=== PATIENT | female | born 1990 | race Caucasian/White ===

== ENCOUNTER 2020-10-20 13:52 | Emergency (ER) | payer SELFPAY ==
--- OUTSIDE RECORDS SUMMARY | 2020-10-20 13:56 | XMS REPORT | Continuity of Care Document ---
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 Interpretation Comments UA Spec Grav (test code = UA Spec 1.025 1 Grav) [facility] [id number] 02:23:00Negative (10/11/13 9:23 PM) [facility] [id number] 02:23:00 Test Item Value Reference Range Interpretation Comments UA pH (test code = UA pH) 7.0 1 5.0-8.0 [facility] [id number] 02:23:00None Seen (10/11/13 9:23 PM) [facility] [id number] 02:23:00None Seen (10/11/13 9:23 PM) [facility] [id number] 02:23:00None Seen (10/11/13 9:23 PM) [facility] [id number] 02:23:00Negative (10/11/13 9:23 PM) [facility] [id number] 02:23:00Negative (10/11/13 9:23 PM) [facility] [id number] 02:23:00Negative (10/11/13 9:23 PM) [facility] [id number] 02:23:000.2[facility] [id number] 02:23:00Negative *NA*(10/11/13 9:23 PM)[facility] [id number] 02:23:00Negative (10/11/13 9:23 PM)[facility] [id number] 02:23:00Negative *NA*(10/11/13 9:23 PM)[facility] CHEM 2013-10-12 02:23:00Negative (10/11/13 9:23 PM)[facility]ann[facility]MUNOLOGY 2013-10-12 01:11:00Negative (10/11/13 8:11 PM)[facility] RESULTS 2013-10-12 00:35:00Negative (10/11/13 7:35 PM)[facility] PANEL 2013-10-12 00:33:000.8[facility] [id number] 00:33:0089[facility] [id number] 00:33:009.4[facility] [id number] 00:33:0026[facility] IUHXT7067-17-29 00:33:57212Thvoajhb HermannCHEM [id number] 00:33:000.9[facility] [id number] 00:33:90246 [facility] [id number] 00:33:003.7[facility]annCHE[facility] PANEL 2013-10-12 00:33:0017[facility] [id number] 00:33:31316Kyhaoxlr HermannCHEM PKGSC8141-93-27 00:33:008.7[facility] CxshrfbSIOANMWCVP1524-83-92 00:33:0033.3[facility] ZvfecxwFNWTFXKJPO7072-99-76 00:33:0011.8[facility] [place] RIIRHENNGO0295-65-84 00:33:009.1[facility] MdibxuaCIXLAHXEBL1273-74-80 00:33:26401 [facility] OpnipjfJMPYLZNZYG2989-07-31 00:33:0015.4[facility]annHEMATOLOGY 2013-10-12 00:33:0090.0[facility] IldaevbFBYYDBZUAK2380-71-54 00:33:00 Test Item Value Reference Range Interpretation Comments MCH (test code = MCH) 30.0 pg 27.0-31.0 [facility] RuiwakeAPXTESSEHG4005-21-81 00:33:0040.7[facility]annHEMATOLOGY 2013-10-12 00:33:0013.6[facility] DjjlvvcDTIMDOCJLB7618-35-98 00:33:004.52[facility] BbajgdnDJHLCTAKZO0232-18-62 00:33:001.3[facility] PiqlyxrMXIMPEOKBY1731-45-78 00:33:00 Test Item Value Reference Range Interpretation Comments Angle (test code = Angle) 73 degrees 64-80 [facility] PndibkuZVSLUXUKIQ5319-19-72 00:33:00 Test Item Value Reference Range Interpretation Comments K-time (test code = K-time) 1.3 min 0.6-2.3 [facility] ZolpggvLWXGBIYHLZ7921-07-35 00:33:007.1[facility]ann[facility]MATOLOGY 2013-10-12 00:33:00 Test Item Value Reference Range Interpretation Comments Max Amp (test code = Max Amp) 59 mm 52-71 [facility] KffonrpXTOSTFTYSS0479-94-07 00:33:00 Test Item Value Reference Range Interpretation Comments ACT (TEG) (test code = ACT (TEG)) 136 s 86-118 [facility] VvofggjUDHYMJBVXP9019-53-51 00:33:00 Test Item Value Reference Range Interpretation Comments Split Point (test code = Split Point) 0.8 min [facility] AipvbxpVKTVZAZILO6653-09-27 00:33:00 Test Item Value Reference Range Interpretation Comments R-time (test code = R-time) 0.9 min 0.4-0.7 [facility] EczqetaYORJWLCPJN6066-70-94 00:33:001.5[facility]MATOLOGY 2013-10-12 00:33:000.6[facility] GgoxcyhYWNMIVJZDO9770-86-83 00:33:003.0[facility] ZxgeotwDVELALAXWN1411-17-17 00:33:0012.8[facility] SxafagfCSLDDDJECV2894-45-01 00:33:004.0[facility] DosuttaSRUQLSGEYA4923-98-93 00:33:000.3[facility] WYSGLQASOS7837-39-11 00:33:0082.8[facility] GovwcesUGKSZIWBRY7902-60-80 00:33:00 0.0[facility] UzildgiLRZRDCOMBW3282-44-70 00:33:009.9[facility]annHEMATOLOGY 2013-10-12 00:33:00Normal (10/11/13 7:33 PM)[facility] ZmgdlwlIBAIQMJAPB7787-49-11 00:33:000.5[facility] GgzipkmYEVNABIWIP0036-66-97 00:33:00Normal (10/11/13 7:33 PM) [facility] [place]
[2020-10-20 15:18] LABS: Urine Blood Negative (Negative); Urine Glucose Negative (Negative); Urine Protein Negative (Negative)
[2020-10-20] MEDS ORDERED: HYDROCODONE/APAP 7.5/325 MG TAB ONE (15:27)
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
[2020-10-20 16:54] VITALS: BP 129/96; TEMP 97.3; O2SAT 100
== END 2020-10-20 16:19 | disposition home or self-care (01) ==
LOC: ER 13:52
DX: R07.89 Other chest pain (principal); M54.5 Low back pain; V49.40XA Driver injured in collision with unspecified motor vehicles in traffic accident, initial encounter
CPT/HCPCS: 70450; 71250; 72125; 81003; 81025; 99283